=== PATIENT | male | born 1955 | race Caucasian/White ===

== ENCOUNTER 2019-06-10 17:59 | Emergency (ER) | payer OTHER, BC, SELFPAY ==
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
[2019-06-10 18:00] VITALS: BP 155/81; PULSE 78; RESP 20; TEMP 36.1; O2SAT 100
--- NOTE | 2019-06-10 18:48 | ECG_ITS ---
Measurements Intervals [place] Rate: 68 P: 59 FL: 180 QRS: 19 QRSD: 114 T: 39 QT: 403 QTc: 430 Interpretive Statements SINUS RHYTHM INFERIOR INFARCT, AGE INDETERMINATE BASELINE ARTIFACT- I, II, III, AVR, AVF, V2 ABNORMAL ECG Electronically Signed On 06-10-2019 20:12:51 BASTING CLEANER by Dakota James D.O.
[2019-06-10 19:39] LABS: BNP < 5.0 pg/mL (0-100)
[2019-06-10 19:42] LABS: Prothrombin Time 10.7 Seconds (9.64-11.0)
[2019-06-10 19:45] LABS: Alanine Aminotransferase 63 U/L (16-63); Alkaline Phosphatase 74 U/L (46-116); Aspartate Amino Transferase 37 U/L (15-37); Bilirubin,Total 0.4 mg/dL (0.00-1.00); Blood Urea Nitrogen 19 mg/dL (7-18); Calcium 8.8 mg/dL (8.5-10.1); Carbon Dioxide 27 mmol/L (21-32); Chloride 106 mmol/L (98-108); Estimated Glomerular Filt Rate > 60; Glucose 119 mg/dL (70-99); Osmolality Calculated 299 mOsm/kg (285-295); Sodium 143 mmol/L (136-145); Total Protein 7.7 g/dL (6.4-8.2); Troponin I < 0.02 ng/mL (0.00-0.056)
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
[2019-06-10 20:06] VITALS: PULSE 88; RESP 15; O2SAT 100
== END 2019-06-10 20:07 | disposition home or self-care (01) ==
PROVIDERS: Emergency Provider Family Medicine; PCP Family Medicine
DX: S13.4XXA Sprain of ligaments of cervical spine, initial encounter (principal); T14.8XXA Other injury of unspecified body region, initial encounter; V89.2XXA Person injured in unspecified motor-vehicle accident, traffic, initial encounter
CPT/HCPCS: 36415; 71046; 80053; 83880; 84484; 85610; 93005; 99283; 99284

== ENCOUNTER 2024-02-06 09:02 | Outpatient (CLI) | payer MEDICARE, SELFPAY ==
--- NOTE | ~2024-02-06 | MR_ITS ---
EXAMINATION: MR lumbar spine wo con DATE: 02/06/2024 10:06 INDICATION: Low back pain, unspecified. TECHNIQUE: Magnetic resonance imaging (MRI) of the lumbar spine was performed without intravenous con trast. Sequences included sagittal T2-weighted FSE, sagittal T2-weighted FS FSE, sagittal T1-weighted FSE, and axial T2-weighted FSE. COMPARISON: None FINDINGS: There is 7 degrees levocurvature of the lumbar spine. Vertebral body heights are normal. Th ere is moderately decreased disc height at L1-L2 and severely decreased disc height from L2-L3 throug h L5-S1 with interbody fusion at L4-L5. The distal spinal cord signal intensity is normal. The conus medullaris is at L1. The following disc levels are specifically discussed: L1-L2: The disc is bulging and has an annular fissure. There is severe bilateral facet joint osteoart hritis. There is mild bilateral neural foraminal stenosis. There is mild central canal stenosis. L2-L3: The disc is bulging and has an annular fissure. There is moderate bilateral facet joint osteoa rthritis. There is moderate bilateral neural foraminal stenosis. There is mild central canal stenosis . L3-L4: The disc is bulging and has an annular fissure. There is severe bilateral facet joint osteoart hritis. There is moderate bilateral neural foraminal stenosis. There is mild central canal stenosis. L4-L5: There is moderate bilateral facet joint hypertrophy. There is mild bilateral neural foraminal stenosis. There is no central canal stenosis. L5-S1: The disc is bulging and has an annular fissure. There is severe bilateral facet joint osteoart hritis. There is moderate bilateral neural foraminal stenosis. There is mild central canal stenosis. IMPRESSION: 1. Severe lumbar spondylosis. Reviewed, dictated and finalized at location B.
--- NOTE | ~2024-02-06 | MR_ITS ---
EXAMINATION: MR shoulder RT wo con DATE: 02/06/2024 10:06 INDICATION: Unspecified rotator cuff tear. TECHNIQUE: Magnetic resonance imaging (MRI) of the right shoulder was performed without intravenous c ontrast. Sequences included axial PD-weighted FS FSE, coronal oblique PD-weighted FS FSE and T2-weigh vinicius FS FSE, and sagittal oblique T2-weighted FS FSE and T1-weighted FSE. COMPARISON: None. FINDINGS: Coracoacromial arch: The acromion undersurface is curved in morphology with anterior hook (type III). There is severe acro mioclavicular joint osteoarthritis including inferiorly directed osteophytes. There is mild subacromi al/subdeltoid bursitis. Rotator cuff: There is moderate supraspinatus tendinopathy and mild infraspinous tendinopathy. Teres minor tendon i s normal. There is mild subscapularis tendinopathy. No tear. There is no asymmetric fatty atrophy of the rotator cuff muscle bellies. Biceps tendon and glenoid labrum: Biceps tendon is in bicipital groove. There is mild intra-articular biceps tendinopathy. There is mac eration of the glenoid labrum. Fluid: There is a small glenohumeral joint effusion. Bones/cartilage: There is extensive full-thickness cartilage loss of glenoid and humeral head with bone volume loss, s ubchondral cysts, osteophytes, and subchondral edema like marrow signal intensity. IMPRESSION: 1. Advanced glenohumeral joint osteoarthritis. 2. Severe acromioclavicular joint osteoarthritis. 3. Moderate rotator cuff tendinopathy. No tear. 4. Mild intra-articular biceps tendinopathy. Reviewed, dictated and finalized at location B.
== END 2024-02-06 09:03 | disposition home or self-care (01) ==
PROVIDERS: PCP Family Medicine; Visit Provider Family Medicine
DX: M75.100 Unspecified rotator cuff tear or rupture of unspecified shoulder, not specified as traumatic (principal); G89.29 Other chronic pain; M54.50 Low back pain, unspecified; M43.06 Spondylolysis, lumbar region; M19.011 Primary osteoarthritis, right shoulder; M77.8 Other enthesopathies, not elsewhere classified
CPT/HCPCS: 72148; 73221

== ENCOUNTER 2024-04-11 07:11 | Outpatient (CLI) | payer MEDICARE, SELFPAY ==
--- NOTE | ~2024-04-11 | MR_ITS ---
MRI of the cervical spine Clinical History: Cervical pain Technique: Axial T2-weighted and gradient images, and sagittal T1-weighted, T2-weighted, and STIR aletha ges were acquired. Findings: There is straightening of the normal cervical lordosis. No fracture or subluxation evident. No suspicious bone marrow signal abnormality seen. At C2-C3, there is mild degenerative disc narrowing with mild disc osteophyte complex. There is bilat eral facet arthropathy. There is bilateral neural foraminal narrowing, right worse than left. No yeny l stenosis or cord compression. At C3-C4, there is severe degenerative disc narrowing and probable partial fusion across the disc spa ce. No definite disc bulge evident. No canal stenosis or cord compression. Probable mild left neural foraminal narrowing. Right neural foramen preserved. At C4-C5, there is moderate degenerative disc narrowing. There is mild disc osteophyte complex with b ilateral facet arthropathy. There is bilateral neural foraminal narrowing. There is mild canal stenos is without og cord compression. At C5-C6, there is advanced degenerative disc narrowing. There is disc osteophyte complex resulting i n mild canal stenosis but no og cord compression. There is bilateral neural foraminal narrowing. At C6-C7, there is advanced degenerative disc narrowing. There is disc osteophyte complex with mild t o moderate canal stenosis and flattening the ventral cord. There is bilateral neural foraminal narrow ing. No abnormal signal seen in the spinal cord. Paravertebral soft tissues are unremarkable. Impression: Advanced degenerative spondylosis, as detailed above. Reviewed, dictated and finalized at [facility]. IGN BANKNOTE TELLER TRADER Impression: Advanced degenerative spondylosis, as detailed above.
== END 2024-04-11 07:12 | disposition home or self-care (01) ==
LOC: CHSIMG 07:14
PROVIDERS: PCP Family Medicine; Visit Provider Family Medicine
DX: G89.29 Other chronic pain (principal); M54.2 Cervicalgia; M43.02 Spondylolysis, cervical region
CPT/HCPCS: 72141

== ENCOUNTER 2024-05-19 08:34 | Outpatient (CLI) | payer MEDICARE, SELFPAY ==
--- NOTE | ~2024-05-19 | XR_ITS ---
Right Shoulder Technique: AP and scapular Y views were obtained. Clinical History: Pain Findings: No fracture or dislocation is seen. Osseous alignment is anatomic. The glenohumeral joint d emonstrates advanced degenerative change, with joint space narrowing, sclerosis, and prominent osteop hyte formation. There is mild AC joint degenerative change.. Soft tissues are unremarkable. Impression: Severe glenohumeral joint degenerative change. Mild AC joint degenerative change. Reviewed, dictated and finalized at location M. UCT DEVELOPMENT TECHNICIAN Impression: Severe glenohumeral joint degenerative change. Mild AC joint degenerative change.
--- OUTSIDE RECORDS SUMMARY | 2024-05-19 09:12 | XMS_ITS | Clinical Summary ---
Author Organization [facility] Address [facility] [place] [address] Care Team Providers Care Crime Prevention Police Officer Name Role Phone Vladimir Marte MD Primary Care Provider [phone] Social History Tobacco Use Types Packs/Day Years Used Date Smoking Tobacco: Never Sex and Gender Information Value Date Recorded Sex Assigned at Not on file Legal Sex Male 7:02 PM CDT Gender Identity Not on file Sexual Orientation Not on file Last Filed Vital Signs Vital Sign Reading Time Taken Comments Blood Pressure 146/82 01/11/2012 2:13 PM CDT Pulse 76 01/11/2012 2:12 PM CDT Regul ar Temperature - - Respiratory Rate 15 01/11/2012 2:12 PM CDT Oxygen Saturation - - Inhaled Oxygen Concentration - - Weight 119.3 kg (263 lb) 01/11/2012 2:12 PM CDT Height 176.5 cm (5' 9.5 ) 01/11/2012 2:12 PM CDT Body Mass Index 38.28 01/11/2012 2:12 PM CDT Plan of Treatment Health Maintenance Due Date Last Done Comments Colorectal Cancer Screening Colonoscopy (10 Years) 1955 Hepatitis C 09/05/1973 DTaP, Tdap and Td Vaccines ( 1 - Tdap) 09/05/1974 Zoster Vaccines (1 of 2) 09/05/2005 Pneumococcal Vaccine: 65+ Ye ars (1 of 1 - PCV) 09/05/2020 COVID-19 Vaccine ( - 2023-2 5 season) 2023 Influenza Adult (#1) 2024 RSV Immunization or 60+ Years (1 - 1-dose 75+ series) 09/05/2030 Meningococcal B Vaccine Aged Out No l onger eligible based on patient's age to complete this topic Meningococcal Vaccine Aged Out No elham raul eligible based on patient's age to complete this topic RSV Immunizations Under 20 Months Aged Out No longer eligible based on patient's age to complete this topic Insurance [facility] Care Teams Crime Prevention Police Officer Relationship Specialty Start Date End Date Vladimir Marte MD [address] [place] [phone] PCP - General FAMILY PRACTICE 05/08/19
--- OUTSIDE RECORDS SUMMARY | 2024-05-19 09:12 | XMS_ITS | Patient Health Summary ---
Author Organization [facility] Address [address] [place] [address] Care Team Providers Care Automatic Buffer Name Role Phone Vladimir Marte MD Primary Care Provider [phone] Note from [facility],non-owned Affiliates and Associated Physician Practices is amultiple site organization consisting of ambulatory clinics and hospital sitesin [place], [place], [place] and [place]. This disclosure is being madepursuant to the Care Everywhere program and may not contain all information available regarding this patient. Last updated 17.[facility] Allergies No known active allergies Medications * Be aware that medications may not be up to date on this document. Alwaysverify current medications with the patient. * meloxicam (MOBIC) 15 MG tablet(Started 05/01/2019) Social History Tobacco Use Types Packs/Day Years Used Date Smoking Tobacco: Never Smokeless Tobacco: Never Alcohol Use Standard Drinks/Week Comments Yes 0 (1 standard drink = 0.6 oz pur e alcohol) social Sex and Gender Information Value Date Recorded Sex Assigned at Not on file Gender Identity Not on file Sexual Orientation Not on file Care Teams Automatic Buffer Relationship Specialty Start Date End Date Vladimir Marte MD [address] [place] [phone] PCP - General 05/04/19
--- OUTSIDE RECORDS SUMMARY | 2024-05-19 09:12 | XMS_ITS | Clinical Summary ---
Author Organization [facility] [employer] Address [address] [place] [address] Care Team Providers Care Timber Harvester Operator Name Role Phone Vladimir Marte MD Primary Care Provider [phone] Source Comments [facility],non-owned Affiliates and Associated Physician Practices is amultiple site organization consisting of ambulatory clinics and hospital sitesin [place], [place], [place] and [place]. This disclosure is being madepursuant to the Care Everywhere program and may not contain all information available regarding this patient. Last updated 17.[facility] [employer] [facility] Allergies No known active allergies Medications * Be aware that medications may not be up to date on this document. Alwaysverify current medications with the patient. Medication Sig Dispensed Refills Start Date End Date Status meloxicam (MOBIC) 15 MG tablet 05/01/2019 Active Family History Medical History Relation Name Comments Hypertension Father Cancer - Other Paternal Grandmother Relation Name Status Comments Father Paternal Grandmother Social History Tobacco Use Types Packs/Day Years Used Date Smoking Tobacco: Never Smokeless Tobacco: Never Alcohol Use Standard Drinks/Week Comments Yes 0 (1 standard drink = 0.6 oz pur e alcohol) social Sex and Gender Information Value Date Recorded Sex Assigned at Not on file Gender Identity Not on file Sexual Orientation Not on file Plan of Treatment Health Maintenance Due Date Last Done Comments COLOGUARD (AGES 45-75) - COL ON CA SCREENING 1955 COLON MONITORING 1955 COLONOSCOPY - COLON CA SCREENING 1955 CT COLONOGRAPHY - COLON CA SCREENING 1955 Colorectal Cancer Screening 1955 FIT - COLON CA SCREENING 1955 FLEX SIG - COLON CA SCREENING 1955 LIPID TESTING 1955 HEPATITIS C SCREENING 09/01/1973 DTAP/TDAP/TD VACCINES (1 - Tdap) 09/05/1974 PNEUMOCOCCAL VACCINE 50+ (1 of 1 - PCV) 09/05/2005 ZOSTER VACCINE (1 of 2) 09/05/2005 COVID-19 VACCINE (1 - 2023-2 5 season) 2023 INFLUENZA VACCINE (#1) 2023 DEPRESSION SCREENING 04/08/2024 Respiratory Syncytial Virus (RSV) Vaccine Pt: or over 60 yrs (1 - 1-dose 75+ series) 09/05/2030 HEPATITIS B VACCINE Aged Out No longe r eligible based on patient's age to complete this topic HIB VACCINE Aged Out No longer eligi ble based on patient's age to complete this topic HPV VACCINE Aged Out No longer eligi ble based on patient's age to complete this topic MENINGOCOCCAL (Group B) VACCINE Aged Out No longer eligible based on patient's age to complete this topic MENINGOCOCCAL VACCINE Aged Out No elham raul eligible based on patient's age to complete this topic Care Teams Timber Harvester Operator Relationship Specialty Start Date End Date Vladimir Marte MD [address] [place] [phone] PCP - General 05/04/19
--- OUTSIDE RECORDS SUMMARY | 2024-05-19 09:12 | XMS_ITS | Referral Summary ---
Author Organization [facility] Address [address] [address] Care Team Providers Care Veterans' Coordinator Name Role Phone Vladimir Marte MD Primary Care Provider [phone] Source Comments [facility],non-owned Affiliates and Associated Physician Practices is amultiple site organization consisting of ambulatory clinics and hospital sitesin [place], [place], [place] and [place]. This disclosure is being madepursuant to the Care Everywhere program and may not contain all information available regarding this patient. Last updated 17.[facility] [employer] Allergies No known active allergies Medications * Be aware that medications may not be up to date on this document. Alwaysverify current medications with the patient. Medication Sig Dispensed Refills Start Date End Date Status meloxicam (MOBIC) 15 MG tablet 05/01/2019 Active Social History Tobacco Use Types Packs/Day Years Used Date Smoking Tobacco: Never Smokeless Tobacco: Never Alcohol Use Standard Drinks/Week Comments Yes 0 (1 standard drink = 0.6 oz pur e alcohol) social Sex and Gender Information Value Date Recorded Sex Assigned at Not on file Gender Identity Not on file Sexual Orientation Not on file Plan of Treatment Not on file Care Teams Veterans' Coordinator Relationship Specialty Start Date End Date Vladimir Marte MD [address] [place] [phone] PCP - General 05/04/19
== END 2024-05-19 08:35 | disposition home or self-care (01) ==
LOC: CHSIMG 08:36
PROVIDERS: PCP Family Medicine; Visit Provider Orthopaedic Surgery
DX: M25.511 Pain in right shoulder (principal)
CPT/HCPCS: 73030

== ENCOUNTER 2024-08-05 16:14 | Outpatient (RCR) | payer MEDICARE, SELFPAY ==
--- NOTE | 2024-08-05 17:25 | OPREHPOC ---
Outpatient Therapy Plan of Care This is a Multidisciplinary Plan of Care that may contain components documented by all disciplines (PT, OT, and ST.) PT Problem 1 PT Problem #1 Knowledge Deficit PT Goal 1 Goal / Goal Update Independent and compliant with HEP. Target Visit 4 PT Problem 2 PT Problem #2 Pain PT Goal 1 Goal / Goal Update Pt to report no more than 2/10 neck or back pain at rest. Pt to report no more than 5/10 neck or back pain with activity. Target Visit 12 PT Problem 3 PT Problem #3 Impaired Range of Motion PT Goal 1 Goal / Goal Update Pt to improve active cervical extension ROM to 35 deg. Pt to improve active lumbar extension to 25 deg without pain. Target Visit 12 PT Problem 4 PT Problem #4 Impaired Strength PT Goal 1 Goal / Goal Update Pt to improve bilat cervical lat flexion mm strength to 5/5. Pt to improve upper and lower abdominal strength to 4+/5. Pt to improve bilat hip flexion strength to 5/5. Target Visit 12 PT Problem 5 PT Problem #5 Impaired Functional Mobility PT Goal 1 Goal / Goal Update Pt to be able to climb ladders and lift objects with no more than 5/10 back pain. Pt to be able to stand at work for more than 3 hours before onset of back pain. Pt to report less than 20% disability on NDI. Pt to report less than 20% disability on onswestry . Target Visit 12
--- NOTE | 2024-08-05 17:25 | PTOPEVAL1 ---
Assessment and note entered by Nazanin Kong, PT Evaluation Information Assessment Status Evaluation ICD-10 Condition Codes (PT) Cervicalgia M54.2,Pain in low back M54.50 Onset 07/31/24 Subjective Information Mr. Dukes notes a long standing history of back and neck pain. He reports this pain goes back to 10-12 years ago and currently his low back is more painful. His neck pain has been going on for as long has his back pain has. He reports he has an aching pain in the neck and that it feels stuck, and he also notes occasional N/T and pain down mostly the R arm. He also notes daily headaches. He takes meloxicam and tylenol for pain. He reports he's also had bouts of dizziness and nausea but isn't sure if these are associated with his neck pain. He notes he would get relief from the chiropractor but he hasn't gone in a while. His low back aches often but it can also be sharp pain. He reports he has to be careful when it comes to picking things up and climbing ladders. He also feels like his back locks up and sitting down brings him relief. If he has any N/T or pain down the legs it doesn't happen very often. He notes his back pain is usually worst in the morning when he wakes up on a sleep number. He will be getting a pain gabriel on September 01. He also has R shoulder pain and had a steroid shot a month ago which helped, however he reports his doctor told him he'll need it replaced. Reported Pain Level Pain Score 3,4: Self Report Assessment PT Clinical Summary Mr. Dukes is a 68 yo male who enters the clinic with neck and low back pain. He demonstrates impaired cervical extension AROM and impaired lateral flexion strength. He also demonstrates bilateral hip flexion weakness, upper and lower abdominal weakness and pain with active lumbar movements. He also demonstrates postural deficits throughout and will benefit from skilled PT to improve deficits to be able to perform functional tasks with less pain. Plan of Care Interventions Electrical Stimulation,Gait Training,Hot Pack/Cold Pack,Manual Therapy,Mechanical Traction,Neuro Re- education,Patient/Caregiver Education,Therapeutic Activities,Therapeutic Exercise,Self-Care/Home Management PT Services Indicated Yes Treatment Frequency and 2x/week for 12 visits Duration These treatments will address the objective and functional deficits as defined above. The patient will be advanced safely and appropriately in order for the patient to progress towards his/her prior level of function. Additional exercises will be introduced and as well as a comprehensive home exercise program upon discharge, if needed, ?to ensure carryover of functional gains achieved in the clinic. This treatment plan has been reviewed and agreement upon by the patient.
--- NOTE | 2024-08-13 16:53 | PCPTNOTE ---
Addendum entered by Sana Zuniga, MARKETING TEAM LEAD 08/13/24 17:00: Cancelled session. Pt reports he did not get out of work in time and did not have the clinic number. Original Note: No call no show this date.
--- NOTE | 2024-10-29 16:24 | PTOPDC ---
Assessment and note entered by Nazanin Kong, PT Evaluation Information Assessment Status Discharge - Pt Not Present ICD-10 Condition Codes (PT) Cervicalgia M54.2,Pain in low back M54.50 Onset 07/31/24 Subjective Information See below Assessment PT Clinical Summary Mr. Dukes attended 5 skilled PT visits addressing neck and low back pain. According to chart review he appeared to be making some progress but he has not returned to therapy in 2 months. His insurance authorization is currently , so he will be discharged from skilled PT this date but will be able to return with new MD order. Plan of Care PT Services Indicated No
== END 2024-08-26 20:00 | disposition home or self-care (01) ==
LOC: CHSPT 16:14
PROVIDERS: PCP Family Medicine; Visit Provider Anesthesiology Pain Medicine
DX: M54.50 Low back pain, unspecified (principal); M54.2 Cervicalgia; M47.812 Spondylosis without myelopathy or radiculopathy, cervical region; M47.817 Spondylosis without myelopathy or radiculopathy, lumbosacral region; M54.51 Vertebrogenic low back pain; M48.061 Spinal stenosis, lumbar region without neurogenic claudication; G89.29 Other chronic pain
CPT/HCPCS: 97014; 97016; 97110; 97112; 97140; 97150; 97161; G0283

== ENCOUNTER 2024-09-01 07:31 | Day surgery (SDC) | payer MEDICARE, SELFPAY ==
--- NOTE | ~2024-09-01 | XR_ITS ---
INTRAOPERATIVE FLUOROSCOPY: CLINICAL HISTORY: 68 years old Male; DIAG/PROG MADALYN L2,L3,LR, L5 MEDIAL BRANCH BLK #1 PROCEDURE COMMENTS: Limited intraoperative fluoroscopy of the lumbar spine was performed. CUMULATIVE DOSE: 38.8 mGy FLUOROSCOPY TIME: 58 seconds FINDINGS/IMPRESSION: Please refer to operative note for further details. Reviewed, dictated and finalized at location A.
--- OUTSIDE RECORDS SUMMARY | 2024-09-01 07:37 | XMS_ITS | Clinical Summary ---
Author Organization [facility] [employer] Address [address] [place] [address] Care Team Providers Care Grain Wafer Machine Operator Name Role Phone Vladimir Marte MD Primary Care Provider [phone] Source Comments [facility] [employer],non-owned Affiliates and Associated Physician Practices is amultiple site organization consisting of ambulatory clinics and hospital sitesin [place] and [place]. This disclosure is being madepursuant to the Care Everywhere program and may not contain all information available regarding this patient. Last updated 17.[facility] [employer] Allergies No known active allergies Medications * Be aware that medications may not be up to date on this document. Alwaysverify current medications with the patient. 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 Gender Identity Not on file Sexual Orientation [...] VACCINE (1 - 2023-2 5 season) 2023 DEPRESSION SCREENING 04/08/2024 INFLUENZA VACCINE (Season Ended) 2024 Respiratory Syncytial Virus (RSV) Vaccine Pt: or [...] to complete this topic MENINGOCOCCAL (Group B) VACC INE SHARED DECISION-MAKING Aged Out No longer eligibl e based on patient's age to complete this topic MENINGOCOCCAL GROUPS A/C/Y/W VACCINE Aged Out No longer eligible b ased on patient's age to complete this topic Insurance PENDING SALE TO [facility] Member Subscriber Plan / Payer (Ef fective 2018-Present) Name:Rigo Navarro Relation to Subscriber:Self Name:RIGO NAVARRO Payer ID:[id number] (NAIC) Type:PPO Address: [facility] [id number] [place] [id number] Care Teams Grain Wafer Machine Operator Relationship Specialty Start Date End Date Vladimir Marte MD [address] [place] [address] PCP - General 05/04/19
[2024-09-01 07:50] VITALS: BP 134/81; PULSE 61; RESP 18; TEMP 36.8; O2SAT 97
--- NOTE | 2024-09-01 09:23 | P.HP_ITS ---
History of Present Illness History of Present Illness Consent: Risks, benefits, and alternatives have been discussed and questions answered. Patient agrees to proceed with procedure. Chief complaint: Lumbosacral spondylosis, chronic low back pain Narrative: Dillon Dukes is a 68 year old male with chronic, recalcitrant and disabling bilateral lumbosacral back pain secondary to degenerative spondylosis with failure to respond to aggressive conservative measures including PT, oral and topical analgesics, opioid and nonopioid analgesics, rest, time and activity/behavioral modification over the past 1-2 years who presents for diagnostic/prognostic medial branch blocks of the bilateral L3, L4, L5 medial branches/dorsal ramus(#1) addressing the ipsilateral L4-5, L5-S1 facet joints under fluoroscopic guidance and with contrast control. Review of Systems Review of Systems: Patient denies any new infectious, allergic, cardiopulmonary, neurologic or constitutional symptoms or changes in activity tolerance or exercise capacity including new or progressive SOB/CASTREJON, peripheral edema, productive cough, dysuria, nausea/vomiting, diarrhea, weight change, fevers/chills/night sweats, new or progressive neurologic deficit, cognitive or mood changes since last seen, except as documented in the HPI. All systems reviewed & are unremarkable except as noted in HPI and below PMFSH Surgical History Surgical History Hx of knee surgery Right and Left, 2009,2012 @ [facility] Family History Family History Father Pacemaker Mother Alzheimer's dementia Social History Social History Smoking status: Never smoker Alcohol intake: former Alcohol use details: socially Substance use: never Lack of Transportation: No Lack of Food: Never True Current Housing: I Have Housing Concerned About Future Housing: No Difficulty Paying Gas/Electric Bills: No Difficulty Paying for Meds: No Currently Unemployed: No Difficulty w/ Childcare or Family Care: No Occupation/Education: occupation 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 Home Medications and Allergies Home Medications ?Medication ?Instructions ?Recorded ?Confirmed ?Type hydrocodone 5 mg-acetaminophen 325 1 tablet PO QHS PRN pain #30 tabs 07/28/24 09/01/24 Rx mg tablet meloxicam 7.5 mg tablet See Rx Instructions .Route 08/24/24 09/01/24 Rx .COMPLEX #60 tabs Allergies Allergy/AdvReac Type Severity Reaction Status Date / Time No Known Allergies Allergy Verified 09/01/24 08:16 Vital Signs Vital Signs - 24 hr 09/01/24 07:50 Temperature 98.3 F Pulse Rate 61 Respiratory Rate 18 Blood Pressure 134/81 Pulse Oximetry 97 Oxygen Delivery Room Air Exam Narrative: The patient's physical exam is essentially unchanged from prior examination on 07/27/2024. Specifically, patient demonstrates normal lung capacity, tidal volume and respiratory rate without wheezes, crackles, rales or rubs. Heart rate and rhythm are regular without murmurs, gallops or rubs. No JVD. Pulses 2+ globally without increasing peripheral edema. AAOx3 with no evidence of confusion, intoxication or altered mental state, NC/AT without acute distress or altered consciousness. Speech, cognition, mood, insight and judgment at baseline and within normal limits. Assessment and Plan Assessment and plan (1) Chronic low back pain: Code(s): M54.50 - Low back pain, unspecified; G89.29 - Other chronic pain Status: Acute (2) Lumbosacral spondylosis: Code(s): M47.817 - Spondylosis without myelopathy or radiculopathy, lumbosacral region Status: Acute Assessment and Plan: Proceed as planned with diagnostic/prognostic medial branch blocks of the bilateral L3, L4, L5 medial branches/dorsal ramus(#1) addressing the ipsilateral L4-5, L5-S1 facet joints under fluoroscopic guidance and with contrast control.
--- NOTE | 2024-09-01 09:24 | WPDHPUPDATE1 ---
History and Physical Update Update Date/Time: 09/01/24 09:24 History and Physical has been reviewed, including an updated exam of the patient. There are NO changes in the patient's condition. Risks, benefits, and alternatives have been discussed and questions answered. Patient agrees to proceed with procedure.
--- NOTE | 2024-09-01 09:25 | W.PM.PROC2 ---
Procedure Note - Detailed Date of Procedure 09/01/24 Pre-op Diagnosis Lumbosacral spondylosis, chronic low back pain Post-op Diagnosis Same Procedure Performed Diagnostic bilateral Lumbar Medial Branch/Dorsal Ramus Blocks at L3, L4, L5 Treating the bilateral L4-5, L5-S1 Facet Joints Under Fluoroscopic Guidance and with Contrast Control. (4 levels blocked). Surgeon Michael Simpson MD Community Service Organization Director None. Anesthesia Local Description of Procedure INFORMED CONSENT: Risks, benefits and alternatives to the procedure were discussed in detail with the patient who expressed explicit understanding and consent to proceed. Patient was informed verbally and in written form regarding the risks associated with the procedure including the low risk of serious infection, bleeding/bruising, allergic reaction, nerve or organ injury, paralysis, procedural site pain or discomfort, worsening pain and/or mobility, failure to treat and/or disfigurement. The patient expressed explicit understanding and consent to proceed. All materials required for the procedure were available prior to procedure start. Site and side were marked prior to procedure and confirmed in the presence of the patient. PROCEDURE IN DETAIL: The patient was brought to the procedural suite and placed in the prone position. Patient was made comfortable with use of pillows under the head/chest, hips and ankles. Skin overlying the injection site on the affected side(s) was prepared broadly with ChloraPrep applicator and draped in a sterile manner. Aseptic technique was used throughout. The endplates of the vertebral bodies at the site(s) of interest were aligned in the AP view. Ipsilateral oblique angulation was utilized to optimize visualization of the intersection between the superior articulating process and transverse process at each target site. Local anesthesia was established by infiltration with approximately 5 mL of 1% lidocaine via a 1-1/2 inch 27-gauge needle. A 25-gauge 5.0 inch Quincke spinal needle was advanced until the needle tip contacted periosteum at the target site, right L3. Lateral view was utilized to confirm the appropriate placement of the needle tip just anterior to the facet line and superior to the pedicle. In the Lateral view, 0.25 mL of Omnipaque 300 contrast medium was injected after negative aspiration for CSF, blood or other bodily fluid, showing appropriate extra-articular spread of contrast without evidence of intravascular, foraminal or intrathecal placement. A 0.5 mL solution of 0.5% PF bupivacaine was injected after negative repeat aspiration. Appropriate spread of the injectate was confirmed with washout of previously injected contrast. No parasthesias were elicited. Needle was removed completely intact without difficulty. The same exact procedure was repeated for all remaining levels on the ipsilateral side, right L4, L5 medial branches/dorsal ramus, modified as necessary to accommodate for the new target location with identical findings and results and no evidence of complication. The same exact procedure was repeated for all remaining levels on the contralateral side, left L3, L4, L5 medial branches/dorsal ramus, modified as necessary to accommodate for the new target location with identical findings and results and no evidence of complication. Images were saved and documented in the patient chart. Patient's skin was cleaned and sterile bandage applied. The patient tolerated the procedure well. The patient was transported to the recovery area in stable condition where they were observed for an appropriate amount of time prior to discharge, without evidence of complication. Patient was instructed on the appropriate completion of a pain diary over the next 12-24 hours. The patient was instructed to avoid excessive activity for the next 48 hours, including climbing and frequent use of stairs. Showers only for 48 hours. They were instructed not to drive or operate heavy machinery for 24 hours. They are to monitor for severe headaches, fevers, chills, night sweats, erythema/swelling at the site or any other signs of infection, bleeding/bruising, bowel or bladder changes as well as new pain, weakness or numbness in the upper or lower extremity. Should they notice these changes, they are instructed to call our office immediately or report directly to the nearest Emergency Department if no answer or if after posted office hours. COMPLICATIONS: None COMMENTS: None CONTRAST WASTED: 28.5mL Omnipaque 300. Complications No immediate complications Condition Stable Disposition Same day [facility] Billing Surgery - Charge Forward: Surgery Billing
[2024-09-01 09:33] VITALS: BP 136/72; PULSE 63; RESP 12; O2SAT 94
[2024-09-01 09:41] VITALS: BP 108/69; PULSE 33; RESP 10; O2SAT 92
[2024-09-01 09:42] VITALS: BP 93/56; PULSE 41; RESP 10; O2SAT 92
[2024-09-01] MEDS: LIDOCAINE 1% PF INJ 5 ML VIAL INFILTRATE (09:42)
[2024-09-01] MEDS: BUPivacaine HCL 0.5% 10 ML AMP INFILTRATE (09:42)
[2024-09-01 09:45] VITALS: BP 105/56; PULSE 65; RESP 12
[2024-09-01 09:50] VITALS: BP 124/71; PULSE 62; RESP 15; O2SAT 93
== END 2024-09-01 10:14 | disposition home or self-care (01) ==
PROVIDERS: PCP Family Medicine; Visit Provider Anesthesiology Pain Medicine
PROC: (CPT 64493; principal; 2024-09-01 09:15)
DX: M47.817 Spondylosis without myelopathy or radiculopathy, lumbosacral region (principal); G89.29 Other chronic pain
CPT/HCPCS: 64493 ×2; 64494 ×2; 64495 ×2; 99199

== ENCOUNTER 2024-09-28 06:40 | Day surgery (SDC) | payer MEDICARE, SELFPAY ==
--- NOTE | ~2024-09-28 | XR_ITS ---
INTRAOPERATIVE FLUOROSCOPY: CLINICAL HISTORY: 69 years old Male; DIAGNOSTIC PROGNOSTIC BILATERAL L3 L4 L5 MEDIAL BRANCH DORSA PROCEDURE COMMENTS: Limited intraoperative fluoroscopy of the lumbar spine was performed. CUMULATIVE DOSE: 44 mGy FLUOROSCOPY TIME: 73 seconds FINDINGS/IMPRESSION: Please refer to operative note for further details. Reviewed, dictated and finalized at location A.
--- NOTE | 2024-09-28 07:25 | WPDHPUPDATE1 ---
History and Physical Update Update Date/Time: 09/28/24 07:25 History and Physical has been reviewed, including an updated exam of the patient. There are NO changes in the patient's condition. Risks, benefits, and alternatives have been discussed and questions answered. Patient agrees to proceed with procedure.
--- NOTE | 2024-09-28 07:25 | W.PM.PROC2 ---
Procedure Note - Detailed Date of Procedure 09/28/24 Pre-op Diagnosis Spondylosis w/o Myelopathy or Radiculopathy,Spinal Post-op Diagnosis Same Procedure Performed Diagnostic bilateral Lumbar Medial Branch/Dorsal Ramus Blocks at L3, L4, L5 Treating the bilateral L4-5, L5-S1 Facet Joints Under Fluoroscopic Guidance and with Contrast Control. (4 levels blocked). Surgeon Michael Simpson MD Director Surface Transportation None. Anesthesia Local Description of Procedure INFORMED CONSENT: Risks, benefits and alternatives to the procedure were discussed in detail with the patient who expressed explicit understanding and consent to proceed. Patient was informed verbally and in written form regarding the risks associated with the procedure including the low risk of serious infection, bleeding/bruising, allergic reaction, nerve or organ injury, paralysis, procedural site pain or discomfort, worsening pain and/or mobility, failure to treat and/or disfigurement. The patient expressed explicit understanding and consent to proceed. All materials required for the procedure were available prior to procedure start. Site and side were marked prior to procedure and confirmed in the presence of the patient. PROCEDURE IN DETAIL: The patient was brought to the procedural suite and placed in the prone position. Patient was made comfortable with use of pillows under the head/chest, hips and ankles. Skin overlying the injection site on the affected side(s) was prepared broadly with ChloraPrep applicator and draped in a sterile manner. Aseptic technique was used throughout. The endplates of the vertebral bodies at the site(s) of interest were aligned in the AP view. Ipsilateral oblique angulation was utilized to optimize visualization of the intersection between the superior articulating process and transverse process at each target site. Local anesthesia was established by infiltration with approximately 5 mL of 1% lidocaine via a 1-1/2 inch 27-gauge needle. A 25-gauge 5.0 inch Quincke spinal needle was advanced until the needle tip contacted periosteum at the target site, right L3. Lateral view was utilized to confirm the appropriate placement of the needle tip just anterior to the facet line and superior to the pedicle. In the Lateral view, 0.25 mL of Omnipaque 300 contrast medium was injected after negative aspiration for CSF, blood or other bodily fluid, showing appropriate extra-articular spread of contrast without evidence of intravascular, foraminal or intrathecal placement. A 0.5 mL solution of 2.0% PF lidocaine was injected after negative repeat aspiration. Appropriate spread of the injectate was confirmed with washout of previously injected contrast. No parasthesias were elicited. Needle was removed completely intact without difficulty. The same exact procedure was repeated for all remaining levels on the ipsilateral side, right L4, L5 medial branches/dorsal ramus, modified as necessary to accommodate for the new target location with identical findings and results and no evidence of complication. The same exact procedure was repeated for all remaining levels on the contralateral side, left L3, L4, L5 medial branches/dorsal ramus, modified as necessary to accommodate for the new target location with identical findings and results and no evidence of complication. Images were saved and documented in the patient chart. Patient's skin was cleaned and sterile bandage applied. The patient tolerated the procedure well. The patient was transported to the recovery area in stable condition where they were observed for an appropriate amount of time prior to discharge, without evidence of complication. Patient was instructed on the appropriate completion of a pain diary over the next 12-24 hours. The patient was instructed to avoid excessive activity for the next 48 hours, including climbing and frequent use of stairs. Showers only for 48 hours. They were instructed not to drive or operate heavy machinery for 24 hours. They are to monitor for severe headaches, fevers, chills, night sweats, erythema/swelling at the site or any other signs of infection, bleeding/bruising, bowel or bladder changes as well as new pain, weakness or numbness in the upper or lower extremity. Should they notice these changes, they are instructed to call our office immediately or report directly to the nearest Emergency Department if no answer or if after posted office hours. COMPLICATIONS: None COMMENTS: None CONTRAST WASTED: 28.5mL Omnipaque 300. Complications No immediate complications Condition Stable Disposition Same day [facility] Billing Surgery - Charge Forward: Surgery Billing
[2024-09-28 07:26] VITALS: BP 129/76; PULSE 60; RESP 20; TEMP 36.3; O2SAT 95; BMI 39.3
[2024-09-28 08:00] VITALS: BP 135/80; PULSE 61; RESP 9; O2SAT 94
[2024-09-28 08:05] VITALS: BP 133/80; PULSE 62; RESP 14; O2SAT 95
[2024-09-28 08:10] VITALS: BP 133/86; PULSE 66; RESP 17; O2SAT 96
[2024-09-28 08:14] VITALS: BP 126/83; PULSE 60; RESP 11; O2SAT 95
[2024-09-28] MEDS: LIDOCAINE 1% PF INJ 5 ML VIAL INFILTRATE (08:16)
[2024-09-28] MEDS: LIDOCAINE 2% PF LOCAL INJ 5 ML VIAL INFILTRATE (08:16)
[2024-09-28 08:19] VITALS: BP 127/75; PULSE 60; RESP 20; O2SAT 95
== END 2024-09-28 08:35 | disposition home or self-care (01) ==
PROVIDERS: PCP Family Medicine; Visit Provider Anesthesiology Pain Medicine
PROC: (CPT 64493; principal; 2024-09-28 07:50)
DX: M47.817 Spondylosis without myelopathy or radiculopathy, lumbosacral region (principal); G89.29 Other chronic pain
CPT/HCPCS: 64493 ×2; 64494 ×2; 64495 ×2; 99199

== ENCOUNTER 2024-10-21 17:05 | Outpatient (CLI) | payer MEDICARE, SELFPAY ==
--- OUTSIDE RECORDS SUMMARY | 2024-10-21 17:08 | XMS_ITS | Clinical Summary ---
Author Organization [facility] Address [facility] [place] [address] Care Team Providers Care Form Builder Helper Name Role Phone Vladimir Marte MD Primary Care Provider Social History Tobacco Use Types Packs/Day Years [...] 2:12 PM CDT Height 176.5 cm (5' 9.5) 01/11/2012 2:12 PM CDT Body Mass Index 38.28 01/11/2012 2:12 PM CDT Plan of Treatment Health Maintenance Due Date Last Done Comments Colorectal Cancer Screening Colonoscopy (10 Years) 1955 Hepatitis C 09/05/1973 DTaP, Tdap and Td Vaccines ( 1 - Tdap) 09/05/1974 Pneumococcal Vaccine: 50+ Ye ars (1 of 1 - PCV) 09/05/2005 Zoster Vaccines (1 of 2) 09/05/2005 COVID-19 Vaccine ( - 2023-2 5 season) 2023 RSV Immunization or 60+ Years (1 - 1-dose 75+ series) 09/05/2030 Meningococcal B Vaccine Aged Out No l onger eligible based on patient's age to complete this topic Meningococcal Vaccine Aged Out No elham raul eligible based on patient's age to complete this topic RSV Immunizations Under 20 Months Aged Out No longer eligible based on patient's age to complete this topic Insurance [facility] Care Teams Form Builder Helper Relationship Specialty Start Date End Date Vladimir Marte MD [address] [place] [phone] PCP - General FAMILY PRACTICE 05/08/19
--- OUTSIDE RECORDS SUMMARY | 2024-10-21 17:08 | XMS_ITS | Clinical Summary ---
Author Organization [facility] [employer] Address [address] [place] [address] Care Team Providers Care Operations Asst Name Role Phone Vladimir Marte MD Primary Care Provider [phone] Source Comments [facility] [employer],non-owned Affiliates and Associated Physician Practices is amultiple site organization consisting of ambulatory clinics and hospital sitesin [place], [place], [place] and [place]. This disclosure is being madepursuant to the Care Everywhere program and may not contain all information available regarding this patient. 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 Gender Identity Not on file Sexual Orientation [...] season) 2023 DEPRESSION SCREENING 04/08/2024 INFLUENZA VACCINE (#1) 2024 Respiratory Syncytial Virus (RSV) Vaccine Pt: [...] patient's age to complete this topic Insurance [facility] Member Subscriber Plan / Payer (Ef fective 2018-Present) Name:Rigo Navarro Relation to Subscriber:Self Name:RIGO NAVARRO Payer ID:[id number] (NAIC) Type:PPO Address: [facility] [id number] [place] [id number] Care Teams Operations Asst Relationship Specialty Start Date End Date Vladimir Marte MD [address] [place] [address] PCP - General 05/04/19
[2024-10-21 17:41] LABS: Hematocrit 44.3 % (37.0-46.0); Hemoglobin 14.9 g/dL (12.4-15.3); Immature Granulocyte Percent A 0.2 % (0.0-0.0); Lymphocytes Absolute Auto 1.46 K/mm3 (1.10-4.50); Mean Corpuscular HGB Conc 33.6 g/dL (32-36); Mean Corpuscular Hemoglobin 30.8 pg (27.0-31.0); Mean Corpuscular Volume 91.7 fL (78.0-102.0); Nucleated Red Blood Cells Absolute Auto 0.00 K/mm3 (0.00-0.00); Nucleated Red Blood Cells Perc 0.0 % (0-0.0); Platelet Count Result 192 K/mm3 (150-420); Red Blood Count 4.83 M/mm3 (4.70-6.10); White Blood Count 5.0 K/mm3 (4.8-10.8)
[2024-10-21 17:58] LABS: Alanine Aminotransferase 45 U/L (6-50); Albumin Level 4.5 g/dL (3.5-5.1); Alkaline Phosphatase 63 U/L (38-126); Anion Gap 7 mmol/L (4-12); Aspartate Amino Transferase 39 U/L (17-59); Bilirubin,Total 0.8 mg/dL (0.2-1.3); Blood Urea Nitrogen 24 mg/dL (9-20); Calcium 9.1 mg/dL (8.4-10.2); Carbon Dioxide 25 mmol/L (22-30); Chloride 109 mmol/L (98-107); Cholesterol 208 mg/dL (0-200); Estimated Glomerular Filt Rate > 60; Glucose 110 mg/dL (65-110); HDL Direct 34 mg/dL; Osmolality Calculated 297 mOsm/kg (285-295); Potassium 4.2 mmol/L (3.4-5.0); Sodium 141 mmol/L (137-145); Total Protein 7.2 g/dL (6.3-8.2); Triglycerides 269 mg/dL (<150)
[2024-10-21 18:02] LABS: Hemoglobin A1C 5.2 % (<5.7)
[2024-10-21 18:34] LABS: Thyroid Stimulating Hormone Reflex 1.910 uIU/mL (0.465-4.68)
== END 2024-10-21 17:06 | disposition home or self-care (01) ==
LOC: CHSLAB 17:06
PROVIDERS: PCP Family Medicine; Visit Provider Nurse Practitioner Family
DX: Z13.1 Encounter for screening for diabetes mellitus (principal); Z79.891 Long term (current) use of opiate analgesic; E03.9 Hypothyroidism, unspecified
CPT/HCPCS: 36415; 80053; 80061; 83036; 84443; 85025

== ENCOUNTER 2024-11-17 02:23 | Day surgery (SDC) | payer MEDICARE, SELFPAY ==
[2024-11-09 15:50] VITALS: BMI 38.9
--- NOTE | 2024-11-09 16:18 | PC.NURSE ---
Report to the Outpatient Waiting Room, entrance under the green pavilion located off [facility], at time __6:00AM___ on date __11/17/24___. Planned Procedure Time: ___7:30AM___.? Time changes happen often and if your time is changed the preop area will call you the afternoon before. - You and your visitor will be asked to self-screen and do not enter if you have any COVID symptoms. Please call surgeon if you need to reschedule. - A mask is optional within the hospital at this time. -PER DR PÉREZ, NOTHING BY MOUTH from midnight until time of surgery and no smoking, or chewing tobacco (or any form of nicotine). No chewing gum, candy or mints. Take only the following medications with a SIP of water on the morning of surgery: HYDROCODONE NEEDED FOR PAIN DO NOT STOP ANY OF YOUR OTHER PRESCRIPTION MEDICATIONS PRIOR TO SURGERY EXCEPT THE FOLLOWING Hold all vitamins and supplements for 3 days per anesthesiologist. Medications to discontinue per physician HOLD MELOXICAM 7 DAYS PRE-OP PER DR PÉREZ____ Date to take last dose 11/09/24 Please no make-up, nail tajik, hairspray, perfume, deodorant, or body powder the day of surgery.? No jewelry (including any body piercings) or valuables the day of surgery, leave them at home.? Please take a shower or bath the night before, or the morning of, surgery with an antibacterial soap.? Wear comfortable, loose fitting clothing.? SHOWER OR BATH NIGHT BEFORE AND MORNING OF SURGERY PER DR PÉREZ. - Jewelry must be removed prior to entering the operating room.? Rings and piercings that are not removed may be cut off. - The hospital will not accept responsibility for valuables.? - Please leave all valuables, including medications, at home the day of surgery. If you are going home after surgery, a licensed tank driver must drive you home.? - NO public transportation without another adult if you receive anesthesia. - We recommend that an adult stay with you for 24 hours following discharge. - We also recommend that you do not drive, make important decision, drink alcoholic beverages, or take any drugs that were not prescribed by your health care provider for at least 24 hours after your discharge time. NO DRIVING FOR 24 HRS POST OP PER DR PÉREZ. Follow any additional instructions given to you from your surgeon. Telephone instructions given to PATIENT and asked if any additional questions and then verbalized understanding. Patient advised to call surgeon office or pre surgery nurse liaison [phone] if any additional questions.
--- NOTE | ~2024-11-17 | XR_ITS ---
XR fluoroscopy no charge Indication: Lumbar radiofrequency ablation TECHNIQUE: Fluoroscopy used during Lumbar radiofrequency ablation performed by [Michael Simpson MD] on 11/17/2024. 1 minute 22 seconds fluoroscopy with 7 fluoroscopic images captured. FINDINGS: Correlate with procedure note. IMPRESSION: Fluoroscopy used during Lumbar radiofrequency ablation. Reviewed, dictated and finalized at location A.
--- OUTSIDE RECORDS SUMMARY | 2024-11-17 02:25 | XMS_ITS | Clinical Summary ---
Author Organization [facility] Address [address] [place] [id number] Care Team Providers Care Travel Clerk Name Role Phone Tone March DO Primary Care Provider [phone] Allergies No known active allergies Medications meloxicam (MOBIC) 7.5 MG tablet Take 1 tablet (7.5 mg total) by mouth 2 (two) times daily. 10/25/2024 Active atorvastatin (LIPITOR) 20 MG tablet Take 1 tablet (20 mg total) by mouth nightly at bedtime. 10/26/2024 Active tirzepatide-valente ght management (ZEPBOUND) 2.5 mg/0.5 mL injectionIndica tions:Weight Loss Inject 2.5 mg into the skin every 7 days. Indications: Weight Loss Active Encounters Date Type Department Care Team Description 11/01/2024 8:44 PM CDT - 11/01/2024 9:59 PM CDT Emergency [facility] [address] [place] [address] Gerson Stover DO Wrist Injury Discharge Disposition: Home or Self Care (Routine Discharge) 11/01/2024 Travel from Last 3 Months Immunizations Immunization Administration Dates Next Due Tdap (Boostrix) 11/01/2024 Family History Medical History Relation Comments Heart Disease Father Alzheimer's disease Mother Relation Status Comments Father Mother Social History Tobacco Use Types Packs/Day Years Used Date Smoking Tobacco: Never Smokeless Tobacco: Never Tobacco Cessation:Counseling Given: Not Answered Alcohol Use Standard Drinks/Week Comments Never 0 (1 standard drink = 0.6 oz pur e alcohol) Sex and Gender Information Value Date Recorded Sex Assigned at Male 11/01/2024 8:55 PM CDT Legal Sex Male 7:02 PM CDT Gender Identity Not on file Sexual Orientation Not on file Last Filed Vital Signs Vital Sign Reading Time Taken Comments Blood Pressure 149/83 11/01/2024 8:49 PM CDT Pulse 77 11/01/2024 8:49 PM CDT Temperature 36 C (96.8 F) 11/01/2024 8:49 PM CDT Respiratory Rate 18 11/01/2024 8:49 PM CDT Oxygen Saturation 97% 11/01/2024 8:49 PM CDT Inhaled Oxygen Concentration - - Weight 122.5 kg (270 lb) 11/01/2024 8:49 PM CDT Height 177.8 cm (5' 10) 11/01/2024 8:49 PM CDT Body Mass Index 38.74 11/01/2024 8:49 PM CDT Plan of Treatment Health Maintenance Due Date Last Done Comments Colorectal Cancer Screening Colonoscopy (10 Years) 1955 Hepatitis C 09/05/1973 Annual Medicare Wellness Visit 09/05/2020 COVID-19 Vaccine ( season) 2024 03/01/2024, 03/30/2023, 01/12/2022, Additional history exists RSV Immunization or 60+ Years (1 - 1-dose 75+ series) 09/05/2030 DTaP, Tdap and Td Vaccines (2 - Td or Tdap) 11/01/2034 11/01/2024 Zoster Vaccines Completed 02/29/2020, 12/30/2019 Pneumococcal Vaccine: 50+ Years Completed 03/30/2023 Meningococcal B Vaccine Aged Out No l onger eligible based on patient's age to complete this topic Meningococcal Vaccine Aged Out No elham raul eligible based on patient's age to complete this topic RSV Immunizations Under 20 Months Aged Out No longer eligible based on patient's age to complete this topic Procedures Procedure Name Priority Date/Time Associated Diagnosis Comments XR WRIST RT MIN 3V STAT 11/01/2024 9: 23 PM CDT from Last 3 Months Results * XR WRIST RT MIN 3V (11/01/2024 9:23 PM CDT) Anatomical Region Laterality Modality Wrist Radiographic Altagracia ging 11/01/2024 9:38 PM CDT Impressions 11/01/2024 9:43 PM CDT IMPRESSION: No acute findings. Referred By: Interpreted By: Dong Bull MD, 11/01/2024 9:38 PM Narrative 11/01/2024 9:43 PM CDT [address] [place] [address] EXAMINATION: XR WRIST RT MIN 3V HISTORY: Pain after injury DATE: 11/01/2024 9:22 PM COMPARISON: None TECHNIQUE: PA, oblique and lateral views of the right wrist. 3 images. FINDINGS: No acute fracture identified. No dislocation. Moderate first MCP joint and CMC joint degenerative change. Moderate third MCP joint degenerative change. Severe first MTP joint degenerative change. No metallic foreign body. Procedure Note Dong Bull MD - 11/01/[address] [place] [address] EXAMINATION: XR WRIST RT MIN 3V HISTORY: Pain after injury DATE: 11/01/2024 9:22 PM COMPARISON: None TECHNIQUE: PA, oblique and lateral views of the right wrist. 3 images. FINDINGS: No acute fracture identified. No dislocation. Moderate firstMCP joint and CMC joint degenerative change. Moderate third MCP jointdegenerative change. Severe first MTP joint degenerative change. No metallic foreign body. IMPRESSION: No acute findings. Referred By: Interpreted By: Dong Bull MD, 11/01/2024 9:38 PM Gerson Stover DO GENERAL IMAGING Final Result from Last 3 Months Insurance [facility] Care Teams Travel Clerk Relationship Specialty Start Date End Date Tone March DO [address] [place] [address] PCP - General FAMILY PRACTICE 11/01/24
--- OUTSIDE RECORDS SUMMARY | 2024-11-17 02:26 | XMS_ITS | Clinical Summary ---
Author Organization [facility] [facility] Address [address] [place] [address] Care Team Providers Care Museum Or Zoo Director Name Role Phone Vladimir Marte MD Primary Care Provider [phone] Source Comments [facility]non-owned Affiliates and Associated Physician Practices is amultiple site organization consisting of ambulatory clinics and hospital sitesin [place], [place], [place] and [place]. This disclosure is being madepursuant to the Care Everywhere program and may not contain all information available regarding this patient. Last updated 17.[facility] 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
[2024-11-17 07:04] VITALS: BP 136/80; PULSE 67; RESP 18; TEMP 37.1; O2SAT 97
[2024-11-17] MEDS: LACTATED RINGERS 1,000 ML 30 ML IV CONT (07:15)
--- NOTE | 2024-11-17 07:16 | PM.HPGS ---
History of Present Illness History of Present Illness Consent: Risks, benefits, and alternatives have been discussed and questions answered. Patient agrees to proceed with procedure. Chief complaint: lumbar spondylosis, chronic low back pain Narrative: Dillon Dukes is a 69 year old male with chronic, recalcitrant and disabling bilateral lumbosacral back pain secondary to degenerative spondylosis with failure to respond to aggressive conservative measures including PT, oral and topical analgesics, opioid and nonopioid analgesics, rest, time and activity/behavioral modification over the past 1-2 years who presents for thermal radiofrequency ablation of the bilateral L3, L4, L5 medial branches/dorsal ramus addressing the bilateral L4-5, L5-S1 facet joints under fluoroscopic guidance. Review of Systems Review of Systems: All systems reviewed & are unremarkable except as noted in HPI and below PMFSH Surgical History Surgical History Hx of knee surgery Right and Left, 2009,2012 @ [facility] Family History Family History Father Pacemaker Mother Alzheimer's dementia Social History Social History Smoking status: Never smoker Alcohol intake: former Substance use: never Substance use type: does not use Lack of Transportation: No Lack of Food: Never True Current Housing: I Have Housing Concerned About Future Housing: No Difficulty Paying Gas/Electric Bills: No Difficulty Paying for Meds: No Currently Unemployed: No Difficulty w/ Childcare or Family Care: No Living arrangements: with family Occupation/Education: occupation 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 Spiritual care concerns: No Meds Home Medications and Allergies Home Medications ?Medication ?Instructions ?Recorded ?Confirmed ?Type meloxicam 7.5 mg tablet See Rx Instructions .Route 08/24/24 11/17/24 Rx .COMPLEX #60 tabs atorvastatin 20 mg tablet (Lipitor) 20 mg PO QHS #90 tabs 10/26/24 11/17/24 Rx acetaminophen 500 mg tablet 1,000 mg PO Q6H PRN pain 11/09/24 11/09/24 History (Acetaminophen Pain Relief) hydrocodone 5 mg-acetaminophen 325 1 tablet PO Q12H PRN pain 11/09/24 11/09/24 History mg tablet Allergies Allergy/AdvReac Type Severity Reaction Status Date / Time No Known Allergies Allergy Verified 11/17/24 07:17 Exam Narrative: The patient's physical exam is essentially unchanged from prior examination on 10/06/2024. Specifically, patient demonstrates normal lung capacity, tidal volume and respiratory rate without wheezes, crackles, rales or rubs. Heart rate and rhythm are regular without murmurs, gallops or rubs. No JVD. Pulses 2+ globally without increasing peripheral edema. AAOx3 with no evidence of confusion, intoxication or altered mental state, NC/AT without acute distress or altered consciousness. Speech, cognition, mood, insight and judgment at baseline and within normal limits. Assessment and Plan Assessment and plan (1) Chronic low back pain: Code(s): M54.50 - Low back pain, unspecified; G89.29 - Other chronic pain Status: Acute (2) Lumbosacral spondylosis: Code(s): M47.817 - Spondylosis without myelopathy or radiculopathy, lumbosacral region Status: Acute Assessment and Plan: Proceed as planned with thermal radiofrequency ablation of the bilateral L3, L4, L5 medial branches/dorsal ramus addressing the bilateral L4-5, L5-S1 facet joints under fluoroscopic guidance.
--- NOTE | 2024-11-17 07:18 | WPDHPUPDATE1 ---
History and Physical Update Update Date/Time: 11/17/24 07:18 History and Physical has been reviewed, including an updated exam of the patient. There are NO changes in the patient's condition. Risks, benefits, and alternatives have been discussed and questions answered. Patient agrees to proceed with procedure.
--- NOTE | 2024-11-17 07:19 | P.OP_ITS ---
Procedure Note - Detailed Date of Procedure 11/17/24 Pre-op Diagnosis lumbar spondylosis, chronic low back pain Post-op Diagnosis Same Procedure Performed Thermal Radiofrequency Ablation of the bilateral Lumbar Medial Branches/Dorsal Ramus at the L3, L4, L5 Levels Treating the bilateral L4-5, L5-S1 Facet Joints Under Fluoroscopic Guidance (4 Levels Treated). Surgeon Michael Simpson MD Manager Business Development [facility]ospice None. Anesthesia Local (w/ MAC) Description of Procedure INFORMED CONSENT: Risks, benefits and alternatives to the procedure were discussed in detail with the patient who expressed explicit understanding and consent to proceed. Patient was informed verbally and in written form regarding the risks associated with the procedure including the low risk of serious infection, bleeding/bruising, allergic reaction, nerve or organ injury, paralysis, procedural site pain or discomfort, worsening pain and/or mobility, failure to treat and/or disfigurement. The patient expressed explicit understanding and consent to proceed. All materials required for the procedure were available prior to procedure start. Site and side were marked prior to procedure and confirmed in the presence of the patient. PROCEDURE IN DETAIL: The patient was brought to the procedural suite and placed in the prone position. Patient was made comfortable with use of pillows under the head/chest, hips and ankles. ASA standard monitors were applied and used throughout the procedure. Skin overlying the injection site on the affected side(s) was prepared broadly with ChloraPrep applicator and draped in a sterile manner. Aseptic technique was used throughout. The endplates of the vertebral bodies at the site(s) of interest were aligned in the AP view. Ipsilateral oblique angulation was utilized to optimize visualization of the intersection between the superior articulating process and transverse process at each target site. Local anesthesia was established by infiltration with approximately 5 mL of 1% lidocaine via a 1-1/2 inch 27-gauge needle divided over each site treated. A 16-gauge 150 mm Scientific Mediaian RF needle with curved 10mm active tip was advanced in the AP view until the needle tip contacted the periosteum at the target site, the right L3 medial branch. Lateral view was utilized to adjust and confirm the appropriate placement of the needle tip just anterior to the facet line, superior to the pedicle and posterior to the foramen. Grounding electrode was in place and functioning. The appropriately-sized RF cannula was inserted into the RF needle and motor stimulation was performed with no subjective or objective evidence of recruited muscle activity with stimulation up to 2.0 volts at a frequency of 2Hz. 1.5 mL of 2.0% PF lidocaine was injected after negative aspiration. After a 90s pause, lesioning was performed to 90 degrees centigrade for 90s ensuring lack of symptoms in the extremity throughout. Needle was rotated 180 degrees and lesioning repeated in a similar manner. Patient tolerated this well. No paresthesias were elicited. Needle was removed completely intact without difficulty. The same procedure was repeated for all intended levels/ structures on the ipsilateral side, right L4, L5 medial branch/dorsal ramus with identical methodology, modified to compensate for new location, with similar results and no evidence of complication. The same exact procedure was repeated for all remaining levels on the contralateral side, left L3, L4, L5 medial branches/dorsal ramus, modified as necessary to accommodate for the new target location with identical findings/results and no evidence of complication. Images were saved and documented in the patient chart. Patient's skin was cleansed and sterile bandage applied. The patient tolerated the procedure well. The patient was transported to the recovery area in stable condition where they were observed for an appropriate amount of time prior to discharge, without evidence of complication. The patient was instructed to avoid excessive activity for the next 48 hours, including climbing and frequent use of stairs. Showers only for 48 hours. They were instructed not to drive or operate heavy machinery for 24 hours. They are to monitor for severe headaches, fevers, chills, night sweats, erythema/swelling at the site or any other signs of infection, bleeding/bruising, bowel or bladder changes as well as new pain, weakness or numbness in the upper or lower extremity. Should they notice these changes, they are instructed to call our office immediately or report directly to the nearest Emergency Department if no answer or if after posted office hours. COMPLICATIONS: None COMMENTS: None Complications No immediate complications Condition Stable Disposition PACU [facility] Billing Surgery - Charge Forward: Surgery Billing
--- NOTE | 2024-11-17 07:20 | P.PNAN_ITS ---
Anes - Initial Pre Proc Eval Procedure: Operation Date: 11/17/24 07:30 Proposed Procedures p Thermal Radiofrequency Ablation Bilateral L3, L4, L5 Medial Branch/Dorsal Ramus Addressing Bilateral L4-5, L5-S1 Facet Joints under Fluoroscopic Guidance with Contrast Control - Michael Simpson MD Date/Time: 11/17/24 07:20 Surgeon: Michael Simpson MD Pre Op Diagnosis: lumbar spondylosis, chronic low back pain Patient Data Age: 69 Gender: M Height: 1.78 m Weight: 123 kg Allergies Allergy/AdvReac Type Severity Reaction Status Date / Time No Known Allergies Allergy Verified 11/17/24 07:17 Home Medications ?Medication ?Instructions ?Recorded ?Confirmed ?Type meloxicam 7.5 mg tablet See Rx Instructions .Route 08/24/24 11/17/24 Rx .COMPLEX #60 tabs atorvastatin 20 mg tablet (Lipitor) 20 mg PO QHS #90 tabs 10/26/24 11/17/24 Rx acetaminophen 500 mg tablet 1,000 mg PO Q6H PRN pain 11/09/24 11/09/24 History (Acetaminophen Pain Relief) hydrocodone 5 mg-acetaminophen 325 1 tablet PO Q12H PRN pain 11/09/24 11/09/24 History mg tablet Patient hx anesthesia problems: none Family hx anesthesia problems: none Results Review: All pre-operative results and documents have been reviewed as part of the pre- operative evaluation. [facility] Surgical History Surgical History Hx of knee surgery Right and Left, 2009,2012 @ [facility] Family History Family History Father Pacemaker Mother Alzheimer's dementia Social History Social History Smoking status: Never smoker Alcohol intake: former Substance use: never Substance use type: does not use Lack of Transportation: No Lack of Food: Never True Current Housing: I Have Housing Concerned About Future Housing: No Difficulty Paying Gas/Electric Bills: No Difficulty Paying for Meds: No Currently Unemployed: No Difficulty w/ Childcare or Family Care: No Living arrangements: with family Occupation/Education: occupation 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 Hyperlipidemia, SATURNINO on CPAP. Informed Consent: The patient's anesthetic plan and its attendant risks and benefits were discussed with the patient/family/POA. Questions were solicited and answers provided to the satisfaction of the patient/family/POA.
[2024-11-17] MEDS: LIDOCAINE 2% PF LOCAL INJ 5 ML VIAL 10 ML INFILTRATE (07:30)
[2024-11-17] MEDS: ceFAZolin 3 GM/D5W 100 ML 100 ML IVPB (07:30)
[2024-11-17] MEDS: BUPivacaine HCL 0.5% 10 ML AMP INFILTRATE (07:30)
[2024-11-17 08:30] VITALS: BP 147/85; PULSE 71; RESP 16; O2SAT 94
[2024-11-17 09:00] VITALS: BP 126/63; PULSE 59
[2024-11-17] MEDS: oxyCODONE HCL (*CRX) 5 MG TAB IR PO (09:16)
[2024-11-17 09:30] VITALS: BP 135/78; PULSE 62
== END 2024-11-17 09:45 | disposition home or self-care (01) ==
PROVIDERS: PCP Family Medicine; Visit Provider Anesthesiology Pain Medicine
PROC: (CPT 64635; principal; 2024-11-17 07:30)
DX: M47.817 Spondylosis without myelopathy or radiculopathy, lumbosacral region (principal); G89.29 Other chronic pain; E78.5 Hyperlipidemia, unspecified; G47.33 Obstructive sleep apnea (adult) (pediatric); Z99.89 Dependence on other enabling machines and devices; E66.9 Obesity, unspecified; Z68.38 Body mass index [BMI] 38.0-38.9, adult; Z79.891 Long term (current) use of opiate analgesic; Z98.890 Other specified postprocedural states
CPT/HCPCS: 64635; 64636 ×3; 99199; A9270; J0690; J2003; J2250; J2704; J3010; J7120

== ENCOUNTER 2024-12-16 12:32 | Outpatient (NON) | payer MEDICARE, SELFPAY ==
--- OUTSIDE RECORDS SUMMARY | 2024-12-16 13:10 | XMS_ITS | Clinical Summary ---
Author Organization [facility] Address [address] [place] [address] Care Team Providers Care Medical Detail Representative Name Role Phone Vladimir Marte MD Primary Care Provider [phone] Source Comments [facility],non-owned Affiliates and Associated Physician Practices is amultiple site organization consisting of ambulatory clinics and hospital sitesin [place], [place], [place] and [place]. This disclosure is being madepursuant to the Care Everywhere program and may not contain all information available regarding this patient. 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
== END 2024-12-16 12:33 | disposition home or self-care (01) ==
LOC: CHSLAB 12:33
PROVIDERS: Visit Provider Nurse Practitioner Family
DX: L08.9 Local infection of the skin and subcutaneous tissue, unspecified (principal)
CPT/HCPCS: 87070; 87075; 87205

== ENCOUNTER 2024-12-22 06:59 | Day surgery (SDC) | payer MEDICARE, SELFPAY ==
[2024-12-18 09:06] VITALS: BMI 39.2
[2024-12-22] VITALS (10 sets, daily range): BP systolic 115–165; BP diastolic 54–94; PULSE 45–69; RESP 10–18; TEMP 36.7; O2SAT 93–96
--- NOTE | ~2024-12-22 | XR_ITS ---
XR fluoroscopy no charge Indication: Midline C6-C7 interlaminar epidural steroid injection TECHNIQUE: Fluoroscopy used during Midline C6-C7 interlaminar epidural steroid injection performed by [Michael Simpson MD] on 12/22/2024. 49 seconds of fluoroscopy time with 24 fluoroscopic images captured. FINDINGS: Correlate with procedure note. IMPRESSION: Fluoroscopy used during Midline C6-C7 interlaminar epidural steroid injection. Reviewed, dictated and finalized at location O.
--- NOTE | 2024-12-22 08:20 | WPDHPUPDATE1 ---
History and Physical Update Update Date/Time: 12/22/24 08:20 History and Physical has been reviewed, including an updated exam of the patient. There are NO changes in the patient's condition. Risks, benefits, and alternatives have been discussed and questions answered. Patient agrees to proceed with procedure.
--- NOTE | 2024-12-22 08:21 | W.PM.PROC2 ---
Procedure Note - Detailed Date of Procedure 12/22/24 Pre-op Diagnosis Cervical radiculopathy, cervical spinal stenosis Post-op Diagnosis Same Procedure Performed Midline Cervical Interlaminar Epidural Steroid Injection at C6-7 under Fluoroscopic Guidance and with Contrast Control. Surgeon Michael Simpson MD Anesthesia Local Description of Procedure INFORMED CONSENT: Risks, benefits and alternatives to the procedure were discussed in detail with the patient who expressed explicit understanding and consent to proceed. Patient was informed verbally and in written form regarding the risks associated with the procedure including the low risk of serious infection, bleeding/bruising, allergic reaction, nerve or organ injury, paralysis, procedural site pain or discomfort, worsening pain and/or mobility, failure to treat and/or disfigurement. The patient expressed explicit understanding and consent to proceed. All materials required for the procedure were available prior to procedure start. Site and side was marked prior to procedure and confirmed in the presence of the patient. PROCEDURE IN DETAIL: The patient was brought to the procedural suite and placed in the prone position. Patient's head was positioned and stabilized with a ProneView pillow or equivalent. Patient was made comfortable with use of pillows under the chest, hips and ankles. Skin overlying the injection site was prepared broadly with ChloraPrep applicator and draped in a sterile manner. Aseptic technique was employed throughout. The endplates of the vertebral body at the site of interest were aligned in the AP view. Slight caudad tilt and ipsilateral oblique angulation was utilized to optimize visualization of the targeted posterior intervertebral foramen at C6-7. Local anesthesia was established by infiltration with approximately 5 mL of 2% lidocaine via a 1-1/2 inch 27-gauge needle. A 20-gauge 4-inch Tuohy epidural needle was advanced intermittently until appropriate loss of resistance to air was identified via plastic loss of resistance syringe. Lateral view was used to confirm the appropriate positioning of the needle tip within the posterior epidural space. In the AP view, 2.0 mL of Omnipaque 300 contrast medium was injected after negative aspiration for CSF, blood or other bodily fluid, showing appropriate epidural spread of contrast without evidence of intravascular or intrathecal placement. After negative repeat aspiration for CSF, blood or other bodily fluid, A 4 mL solution containing 10 mg of dexamethasone in sterile PF Normal Saline was injected after negative repeat aspiration. Appropriate spread of the injectate was confirmed with washout of previously injected contrast. No parasthesias were elicited. Needle was removed completely intact without difficulty. Images were saved and documented in the patient chart. Patient's skin was cleansed and sterile bandage applied. The patient tolerated the procedure well. The patient was transported to the recovery area in stable condition where they were observed for an appropriate amount of time prior to discharge, without evidence of complication. The patient was instructed to avoid excessive activity for the next 48 hours, including overhead work, reaching or extended device/computer usage. Showers only for 48 hours. They were instructed not to drive or operate heavy machinery for 24 hours. They are to monitor for severe headaches, fevers, chills, night sweats, erythema/swelling at the site or any other signs of infection, bleeding/bruising, bowel or bladder changes as well as new pain, weakness or numbness in the upper or lower extremity. Should they notice these changes, they are instructed to call our office immediately or report directly to the nearest Emergency Department if no answer or if after posted office hours. CONTRAST WASTED: 28mL Omnipaque 300. Complications Other complications (Patient had a brief episode of bradycardia and syncope near the end of the procedure. He did recover however intraop operatively. Vital signs were stable with mild bradycardia but not significantly changed from admission heart rate. See addendum.) Condition Stable Disposition Same day [facility] Billing Surgery - Charge Forward: Surgery Billing Addendum Text Addendum Addendum: Patient was taken to recovery. He did improve slightly with sublingual a dancer drawn. Vital signs remained stable with no evidence of hypoxia, hypotension or reduced cognition. Patient is not diabetic and has no pre-existing heart condition. However he complained of feeling generalized weakness and was still experiencing ways of nausea. He has no known drug allergies and showed no sign of anaphylaxis or systemic rash or urticaria. Denies any significant pain related to the procedure. Procedure site was clean dry and intact. Given persistent nausea and vomiting and generalized weakness with overall feeling of malaise and a reluctance to ambulate spontaneously in an otherwise well patient, decision was made to transfer him to the emergency department at [facility] for further assessment prior to discharge. Patient elected to go by ambulance. Patient was nauseated but stable and without significant pain or complaints of acute chest pain, shortness of breath or dyspnea at the time of transfer. Patient's condition was discussed with the emergency department prior to transfer.
[2024-12-22] MEDS: dexAMETHasone SOD PHOS INJ 10 MG/ML 1 ML VIAL IM (08:35)
[2024-12-22] MEDS: ONDANSETRON HCL ODT 4 MG TABLET SUBLINGUAL (08:55)
--- NOTE | 2024-12-22 09:05 | SUR.PHASEII ---
0816 pt arrived dry heaving s/p syncopal episode in OR. Dr Simpson at bedside and ordered SL zofran. pt diorphoretic. states pt does this with pain. Will continue to monitor
[2024-12-22] MEDS: ONDANSETRON HCL ODT 4 MG TABLET PO (09:57)
--- NOTE | 2024-12-22 10:02 | SUR.PHASEII ---
45min post procedure pt still dry heaving and says he cant stand. Dr slaughter at bedside and recommended pt go to ER. EMS called. 4 zofran given 1000. iv being started. Pt stated no CP just weakness
--- NOTE | 2024-12-22 10:10 | SUR.PHASEII ---
going to [facility] on EMS stretcher
--- NOTE | 2024-12-22 10:13 | SUR.PHASEII ---
Dr slaughter called report to [facility] 1000
== END 2024-12-22 10:10 | disposition home or self-care (01) ==
PROVIDERS: PCP Family Medicine; Visit Provider Anesthesiology Pain Medicine
PROC: (CPT 62321; principal; 2024-12-22 08:10)
DX: M48.02 Spinal stenosis, cervical region (principal); M54.12 Radiculopathy, cervical region
CPT/HCPCS: 62321; 99199; J1100

== ENCOUNTER 2024-12-22 10:35 | Emergency (ER) | payer MEDICARE, SELFPAY ==
[2024-12-22] VITALS (10 sets, daily range): BP systolic 123–152; BP diastolic 72–92; PULSE 55–65; RESP 8–20; TEMP 36.4; O2SAT 93–98
--- NOTE | ~2024-12-22 | XR_ITS ---
Examination: XR chest 2V Clinical History: syncope Comparison: 06/10/2019 hours is Technique: PA and Lateral Findings: Cardiomediastinal silhouette normal size and configuration. Lungs clear. No acute bony abnormality. IMPRESSION: 1. No acute cardiopulmonary findings. Reviewed, dictated and finalized at location R.
--- NOTE | 2024-12-22 10:55 | ED_ITS ---
HPI - Syncope General Chief Complaint: Syncope Stated Complaint: syncope during cervical injection Time Seen by Provider: 12/22/24 10:53 Source: patient Mode of arrival: ambulatory Limitations: no limitations History of Present Illness HPI narrative: 69 years old white male came to the ED with fainting after having neck and shoulder injection prior to arrival. Patient was in p.o., received cortisone injection for the 1st time in his neck and shoulder. Patient told the staff that he is going to faint and was laying down face down at that time. Then he fainted. History of numerous similar event with injection in the past. Patient is obese with history of arthritis, no history of diabetes, hypertension, hyperlipidemia, coronary artery disease, lung disease. Patient does not smoke or drink or use drugs. Currently patient main complaint is feeling sleepy which is normal and similar to the past after fainting. He denies any fever, chills, nausea, vomiting, shortness of breath, chest pain or back pain. Related Data Home Medications ?Medication ?Instructions ?Recorded ?Confirmed ?Last Taken ?Type acetaminophen 500 mg tablet 1,000 mg PO Q6H PRN pain 0 11/09/24 12/22/24 12/22/24 05:00 History (Acetaminophen Pain Relief) hydrocodone 5 mg-acetaminophen 325 1 tablet PO Q12H PA N pain 11/09/24 12/22/24 Unknown History mg tablet Allergies Allergy/AdvReac Type Severity Reaction Status Date / Time No Known Allergies Allergy Verified 12/22/24 07:19 Review of Systems 2 Review of Systems: All systems reviewed & are unremarkable except as noted in HPI and below PMFSH Past Medical History Medical History Cervical radiculopathy Surgical History Surgical History Hx of knee surgery Right and Left, 2009,2012 @ [facility] Family History Family History Father Pacemaker Mother Alzheimer's dementia Social History Social History Smoking status: Never smoker Alcohol intake: former Substance use: never Substance use type: does not use Lack of Transportation: No Lack of Food: Never True Current Housing: I Have Housing Concerned About Future Housing: No Difficulty Paying Gas/Electric Bills: No Difficulty Paying for Meds: No Currently Unemployed: No Difficulty w/ Childcare or Family Care: No Living arrangements: with family Additional living arrangements comments: SPOUSE [employer] DAUGHTER Occupation/Education: occupation 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 Musculoskeletal: Normal range of motion, nontender back Neurologic: Alert and oriented ?3, GENERAL MAINTENANCE TECHNICIAN is normal as tested, no gross motor deficit Course Vital Signs Vital signs: Vital Signs Temperature 36.4 C 12/22/24 10:37 Pulse Rate 61 12/22/24 10:37 Respiratory Rate 20 12/22/24 10:37 Blood Pressure 149/79 H 12/22/24 10:37 Pulse Oximetry 93 12/22/24 10:37 Oxygen Delivery Room Air 12/22/24 10:37 Temperature 36.4 C 12/22/24 10:37 Pulse Rate 56 L 12/22/24 12:01 Respiratory Rate 13 12/22/24 12:01 Blood Pressure 136/72 12/22/24 12:00 Pulse Oximetry 98 12/22/24 12:00 Oxygen Delivery Room Air 12/22/24 10:37 MDM - Syncope MDM Narrative Medical decision making narrative: Patient came to the ED with fainting/ syncope after cortisone injection in the neck and shoulder. Patient report having similar symptoms in the past secondary to injection. Vital signs are stable Physical examination is unremarkable Differential diagnosis: Vasovagal reaction. blood workup today includes CBC, CMP, troponin showed no acute abnormalities Chest x-ray showed no acute abnormality EKG on arrival showed normal sinus rhythm Patient's symptoms are improving, initially had nausea, in the ED asymptomatic Differential Diagnosis Differential diagnosis: Likely other ( as above) Lab Data Attestation: I reviewed the patient's lab results. 12/22/24 11:20 09/16/25 11:20 Labs: Lab Results 12/22/24 Range/Units 11:20 WBC 8.0 (4.5-10.0) K/mm3 RBC 4.62 (4.6-6.20) M/mm3 Hgb 14.1 (14.0-18.0) g/dL Hct 42.9 (42.0-52.0) % MCV 92.9 (80-100) fl MCH 30.5 (26-34) pg MCHC 32.9 (32-36) g/dl RDW 13.5 (11.5-14.5) % Plt Count 168 (150-375) k/mm3 MPV 10.4 (7.4-10.4) fl Immature Gran % (Auto) 0.4 (0-0.5) % Neut % (Auto) 88.2 H (45.5-73.1) % Lymph % (Auto) 7.5 L (18.3-44.2) % Nash % (Auto) 2.9 (2.6-8.5) % Eos % (Auto) 0.4 (0-4.4) % Baso % (Auto) 0.6 (0.2-1.2) % Lymph # (Auto) 0.60 L (0.9-3.2) K/mm3 Nash # (Auto) 0.2 (0.1-0.6) K/mm3 Eos # (Auto) 0.0 (0-0.3) K/mm3 Baso # (Auto) 0.1 (0.0-0.1) K/mm3 Abs Immat Gran (auto) 0.03 (0.00-0.031) K/mm3 Absolute Neuts (auto) 7.1 H (1.3-6.7) K/mm3 Absolute Nucleated RBC 0.000 (0.0-0.012) K/mm3 Nucleated RBC % 0.0 (0.0-0.2) % Sodium 138 (137-145) mmol/L Potassium 4.0 (3.4-5.0) mmol/L Chloride 104 (98-107) mmol/L Carbon Dioxide 24 (22-30) mmol/L Anion Gap 10 (4-12) mmol/L BUN 25 H (9-20) mg/dL Creatinine 0.70 (0.7-1.3) mg/dL Estim Creat Clear Calc 114 ml/min Estimated GFR > 60 (59 - ) Glucose 138 H (65-110) mg/dL Calcium 8.7 (8.4-10.2) mg/dL Total Bilirubin 0.8 (0.2-1.3) mg/dL AST 37 (17-59) U/L ALT 39 (6-50) U/L Alkaline Phosphatase 70 (38-126) U/L Total Protein 7.6 (6.3-8.2) g/dL Albumin 4.4 (3.5-5.1) g/dL Imaging Data Radiologist's impression: Impressions Chest X-Ray 12/22/24 11:47 IMPRESSION: 1. No acute cardiopulmonary findings. ECG Data EKG #1: Attestation: I personally reviewed and interpreted this ECG as follows: Interpretation: normal sinus rhythm at 62 beats per minute with occasional PVCs, if you myocardial infarction, probably old, abnormal EKG, no previous EKG available for comparison Critical Care Time Critical Care Time Critical Care Time: No Discharge Plan Discharge Clinical Impression: Syncope, vasovagal Patient Disposition: Home Condition: Stable Instructions: Syncope (DC) Additional Instructions: Return if symptoms are worsening , call your family physician for appointment, take Tylenol as as needed for aches and pain, continue home medications. Patient Language: Polish Prescriptions: No Action Wegovy 0.25 mg/0.5 mL pen injector 0.25 mg subcut WEEKLY Qty: 2 0RF Rx Instructions: *SAMPLE* LOT: [id number] EXP: 02/05/2025 4 PENS GIVEN mupirocin [Centany] 2 % ointment 1 applic topical BID 14 Days Qty: 22 0RF amoxicillin-pot clavulanate 875-125 mg tablet 1 tablet PO Q12H 10 Days Qty: 20 0RF hydrocodone-acetaminophen 5-325 mg tablet 1 tablet PO Q12H PRN (Reason: pain) acetaminophen [Acetaminophen Pain Relief] 500 mg tablet 1,000 mg PO Q6H PRN (Reason: pain) atorvastatin [Lipitor] 20 mg tablet 20 mg PO QHS Qty: 90 0RF meloxicam 7.5 mg tablet See Rx Instructions .ROUTE .COMPLEX Qty: 60 2RF Dose Instruction: TAKE 1 TABLET BY MOUTH TWICE A DAY Rx Instructions: TAKE 1 TABLET BY MOUTH TWICE A DAY Follow-up/Referrals: Tone March, [Primary Care Provider, [facility]]
--- NOTE | 2024-12-22 10:59 | ECG_ITS ---
Test Date: 2024-12-22 11:08:00 Measurements Intervals Aniwa Rate: 62 P: 44 IA: 201 QRS: 15 QRSD: 119 T: 36 QT: 458 QTc: 468 Interpretive Statements SINUS RHYTHM WITH OCCASIONAL SUPRAVENTRICULAR PREMATURE COMPLEXES INFERIOR MYOCARDIAL INFARCTION , PROBABLY OLD [40+ ms Q WAVE AND/OR ST/T ABNORMALITY IN II/aVF] ABNORMAL ECG No previous ECG available for comparison Electronically Signed On 12-22-2024 12:11:29 CDT by Leander Dorantes M.D.
[2024-12-22 11:28] LABS: Hematocrit 42.9 % (42.0-52.0); Hemoglobin 14.1 g/dL (14.0-18.0); Immature Granulocyte Percent A 0.4 % (0-0.5); Lymphocytes Absolute Auto 0.60 K/mm3 (0.9-3.2); Mean Corpuscular HGB Conc 32.9 g/dl (32-36); Mean Corpuscular Hemoglobin 30.5 pg (26-34); Mean Corpuscular Volume 92.9 fl (80-100); Nucleated Red Blood Cells Absolute Auto 0.000 K/mm3 (0.0-0.012); Nucleated Red Blood Cells Perc 0.0 % (0.0-0.2); Platelet Count Result 168 k/mm3 (150-375); Red Blood Count 4.62 M/mm3 (4.6-6.20); White Blood Count 8.0 K/mm3 (4.5-10.0)
[2024-12-22 11:43] LABS: Alanine Aminotransferase 39 U/L (6-50); Albumin Level 4.4 g/dL (3.5-5.1); Alkaline Phosphatase 70 U/L (38-126); Anion Gap 10 mmol/L (4-12); Aspartate Amino Transferase 37 U/L (17-59); Bilirubin,Total 0.8 mg/dL (0.2-1.3); Blood Urea Nitrogen 25 mg/dL (9-20); Calcium 8.7 mg/dL (8.4-10.2); Carbon Dioxide 24 mmol/L (22-30); Chloride 104 mmol/L (98-107); Estimated CRCL calculation 114 ml/min; Estimated Glomerular Filt Rate > 60; Glucose 138 mg/dL (65-110); Potassium 4.0 mmol/L (3.4-5.0); Sodium 138 mmol/L (137-145); Total Protein 7.6 g/dL (6.3-8.2)
[2024-12-22] MEDS: SODIUM CHLORIDE 0.9% IV 1,000 ML 500 ML IV CONT (12:15)
--- OUTSIDE RECORDS SUMMARY | 2024-12-22 13:05 | XMS_ITS | Clinical Summary ---
Author Organization [facility] Address [address] [place] [address] Care Team Providers Care It Technician Name Role Phone Vladimir Marte MD Primary Care Provider Source Comments [facility],non-owned Affiliates and Associated Physician Practices is amultiple site organization consisting of ambulatory clinics and hospital sitesin [place], [place], [place] and [place]. This disclosure is being madepursuant to the Care Everywhere program and may not contain all information available regarding this patient. 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 Gender Identity Not on file Sexual Orientation [...] 09/05/2005 ZOSTER VACCINE (1 of 2) 09/05/2005 DEPRESSION SCREENING 04/08/2024 COVID-19 VACCINE (1 - 2023-2 5 season) 2024 INFLUENZA VACCINE (#1) 2024 Respiratory Syncytial Virus [...] patient's age to complete this topic Insurance [facility] Member Subscriber Plan / Payer (Ef fective 2018-Present) Name:Rigo Navarro Relation to Subscriber:Self Name:RIGO NAVARRO Payer ID:[id number] (NAIC) Type:PPO Address: [id number] [place] [id number] Care Teams It Technician Relationship Specialty Start Date End Date Vladimir Marte MD [address] [place] [id number] PCP - General 05/04/19
== END 2024-12-22 13:15 | disposition home or self-care (01) ==
PROVIDERS: Emergency Provider Emergency Medicine; PCP Family Medicine
DX: R55 Syncope and collapse (principal); I49.1 Atrial premature depolarization; R94.31 Abnormal electrocardiogram [ECG] [EKG]
CPT/HCPCS: 36415; 71046; 80053; 85025; 93005; 96360; 99284; J7030